=== PATIENT | female | born 1955 | race Caucasian/White ===

== ENCOUNTER → 2017-04-24 | Outpatient (CLI) | payer BC ==
--- NOTE | 2017-04-24 14:27 | DIAGNOSTIC IMAGING REPORT ---
R KNEE 3 VIEWS CLINICAL HISTORY: BILATERAL KNEE PAIN pain COMPARISON: None. DISCUSSION: Considerable degenerative narrowing of the medial joint compartments of both knees. Moderate degenerative changes of patellofemoral joint compartments bilaterally. Lateral joint compartments are generally well preserved. There is no evidence for soft tissue swelling. IMPRESSION: Considerable degenerative changes in medial joint compartments bilaterally. Moderate degenerative change patellofemoral joint. The above report was generated using voice recognition software. It may contain grammatical, syntax or spelling errors. Electronically signed by: Jaxon Irving M.D. 04/24/2017 2:26 PM Dictated Date/Time: 04/24/2017 2:25 PM
== END | disposition home or self-care (01) ==
LOC: C.RDSM 18:57
PROVIDERS: ATTEND Physician Assistant
DX: R52 Pain, unspecified (principal)

== ENCOUNTER 2023-10-11 06:14 | Observation (INO) ==
--- NOTE | 2023-09-01 09:01 | PAT Medication Instructions ---
Medication Instructions Date of Service September 01, 2023 Home Medications Medication Instructions Recorded albuterol sulfate 90 mcg/actuation 2 inh inhalation Q4H PRN shortness 01/04/20 aerosol inhaler of breath or wheezing #8.5 grams albuterol sulfate 90 mcg/actuation aerosol inhaler 2 inh inhalation Q4H PRN shortness of breath or wheezing simvastatin 20 mg tablet 20 mg PO HS acetaminophen 500 mg tablet 500 mg PO BID PRN Pain diphenhydramine HCl 25 mg tablet (Benadryl Allergy) 25 mg PO HS PRN Sleep famotidine 40 mg tablet 40 mg PO DAILY PRN Indigestion pantoprazole 40 mg tablet,delayed release 40 mg PO QAM PRN Heartburn prucalopride 2 mg tablet (Motegrity) 2 mg PO QAM DO NOT take the morning of surgery prucalopride 2 mg tablet (Motegrity) 2 mg PO QAM Take morning of surgery With a small sip of water, OTHERWISE NOTHING TO EAT OR DRINK AFTER MIDNIGHT: albuterol sulfate 90 mcg/actuation aerosol inhaler 2 inh inhalation Q4H PRN shortness of breath or wheezing (use if needed; please bring rescue inhaler with you to hospital day of surgery if possible) acetaminophen 500 mg tablet 500 mg PO BID PRN Pain (if needed) famotidine 40 mg tablet 40 mg PO DAILY PRN Indigestion (if needed) pantoprazole 40 mg tablet,delayed release 40 mg PO QAM PRN Heartburn (if needed) Take evening before surgery albuterol sulfate 90 mcg/actuation aerosol inhaler 2 inh inhalation Q4H PRN shortness of breath or wheezing (if needed) simvastatin 20 mg tablet 20 mg PO HS acetaminophen 500 mg tablet 500 mg PO BID PRN Pain (if needed) diphenhydramine HCl 25 mg tablet (Benadryl Allergy) 25 mg PO HS PRN Sleep (if needed) famotidine 40 mg tablet 40 mg PO DAILY PRN Indigestion (if needed) Other Notes If you have any questions please call us at [phone] or [phone] or [phone] or [phone]
--- NOTE | 2023-09-08 09:39 | Anesthesiology Consultation ---
Date of Service September 08, 2023 Assessment & Plan (1) Encounter for pre-operative examination: - Infectious disease screening: Per assessment on 09/08/23: No known recent infectious disease contacts or current infectious disease symptoms. - Outpatient joint assessment: Pt currently scheduled for inpatient pathway. If surgeon requests review for outpatient joint pathway, patient is not recommended candidate for outpatient joint program from anesthesia standpoint based on available information. - S/P Left TKA (10/18/17): SAB x1 attempt + regional at [facility] - Cardiology visit (06/07/23): "Chest pain/SOB: Which has resolved.. 2021 workup shows an essentially normal echocardiogram and completely normal stress test.. If she needs surgery can proceed as a low cardiac risk" - Cardiology note (09/11/23): "Low cardiac risk" - Vascular visit (06/14/23): "Her aortoiliac ultrasound performed prior to today's appointment demonstrates a widely patent aorta and iliac arteries, with an Infrarenal abdominal aortic aneurysm measuring 4.3 x 4.3 cm. This previously measured 4.4 cm 6 months ago.. Unchanged in comparison to her imaging performed 6 months ago. Due to the stability of this aneurysm, we will have her return in 6 more months for reevaluation.. From a vascular standpoint, there are no contraindications to her proceeding with her right knee arthroplasty in October." Chart Review Chart Review: Acceptable Risk for Surgery and Patient seen in Pre Admission Testing Teaching & Discussion Pre-Anesthesia Teaching/Discussion Notes: Instructed NPO after midnight before surgery,except medications with 15 cc of water. Medication instructions provided according to the PAT guidelines. History Surgery Operation Date: 10/11/23 07:00 Proposed Procedures p Right Total Knee Arthroplasty - Oli Reddy MD Height/Weight Height: 5 ft 3 in Weight: 56.9 kg Allergies Allergy/AdvReac Type Severity Reaction Status Date / Time temazepam [From Restoril] Allergy Intermediate Mouth Verified 09/06/23 15:01 blisters Medications Home Medications Medication Instructions Recorded Confirmed Last Taken albuterol sulfate 90 mcg/actuation 2 inh inhalation Q4H PRN shortness 01/04/20 09/01/23 Unknown aerosol inhaler of breath or wheezing #8.5 grams simvastatin 20 mg tablet 20 mg PO HS 12/14/22 09/01/23 Unknown acetaminophen 500 mg tablet 500 mg PO BID PRN Pain 09/01/23 09/01/23 Unknown diphenhydramine HCl 25 mg tablet 25 mg PO HS PRN Sleep 09/01/23 09/01/23 Unknown (Benadryl Allergy) famotidine 40 mg tablet 40 mg PO DAILY PRN Indigestion 09/01/23 09/01/23 Unknown pantoprazole 40 mg tablet,delayed 40 mg PO QAM PRN Heartburn 09/01/23 09/01/23 Unknown release prucalopride 2 mg tablet 2 mg PO QAM 09/01/23 09/01/23 Unknown (Motegrity) Past Medical History Medical History AAA (abdominal aortic aneurysm) 2023 imagin.3-4.4cm Follows with vascular/Dr. Cat Degenerative disc disease cervical spine History of COVID-19 (12/2019) Covid PNA > symptoms resolved History of CVA (cerebrovascular accident) Incidental finding remote imaging 1990s History of hypotension "periods of lower blood pressure readings" Hx of colonic polyps Hyperlipidemia Indigestion + nausea (denies heartburn) Famotidine and Pantoprazole PRN Insomnia Osteoarthritis Paroxysmal SVT (supraventricular tachycardia) s/p ablation (~2005) No recent issues Restless leg syndrome Sleep apnea No device (unable to tolerate CPAP) Exercise / Class Metabolic Activity II 4-5 Yardwork/Stairs/Walk up hill (one FS: No CP, no SOB) Past Family History Family History Other Myocardial infarction No family history of adverse response to anesthesia Past Surgical History Surgical History H/O cardiac radiofrequency ablation ~2005 r/t SVT History of arthroplasty of left knee History of bladder suspension procedure total of 6 procedures History of cholecystectomy History of colonoscopy History of esophagogastroduodenoscopy (EGD) Nausea and vomiting after administration of anesthetic agent S/P epidural steroid injection cervical epidurals Status post placement of implantable loop recorder Implanted ~2011 "Batteries are " but device remains in left upper chest Status post total left knee replacement Left TKA (10/18/17): SAB x1 attempt + regional at [facility] Past Anesthesia History No Hx of Anesthesia Complications and No Family Hx of Anesthesia Complications History of PONV No Hx of PONV and No Hx of Motion Sickness Social History Smoking Status: Current every day smoker tobacco type: cigarettes Smoking cigarettes per day: 1 PPD x50 years Do You Dip or Chew Tobacco: No Hx Alcohol Use: No Hx Substance Use: No substance use type: does not use Review of Systems Patient denies chest pain, shortness of breath, dyspnea on exertion, fever, chills, cough, wheezing, palpitations. Physical Exam Vital Signs BP 111/69 P 72 TEMP 98.1 SP02 97%RA RESP 16 Physical Full cervical extension range of motion. Full TMJ range of motion. TMD 3 finger breaths Mallampati Score I Dentition: lower front missing Lungs: clear throughout to auscultation Cardiac: regular rate and rhythm, faint heart sounds Spine: normal Carotid arteries: negative bruit Extremities: no LE edema Lab Results Anesthesia Preop Results Results Anesthesia Widget: WBC 7.60 K/ul (4.8-10.8) 09/08/23 Hgb 15.0 g/dl (12.0-16.0) 09/08/23 Hct 45.9 % (37.0-47.0) 09/08/23 Plt 243 K/uL (130-400) 09/08/23 Na 139 mmol/L (136-145) 09/08/23 K 4.3 mmol/L (3.5-5.1) 09/08/23 Cl 105 mmol/L (98-107) 09/08/23 CO2 29 mmol/L (21-32) 09/08/23 BUN 8 mg/dl (6-23) 09/08/23 Creat 0.67 mg/dl (0.6-1.2) 09/08/23 Glucose Level 109 mg/dl (70-99(Fasting)) H 09/08/23 PT 10.2 Seconds (9.0-12.0) 09/08/23 PTT 27 Seconds (21-31) 09/08/23 INR 0.9 (0.9-1.1) 09/08/23 Urine Color Yellow 09/08/23 Urine Appearance Cloudy (Clear) A 09/08/23 Urine pH 8.0 (4.5-7.5) H 09/08/23 Urine Specific [place] 1.014 (1.000-1.030) 09/08/23 Urine Protein Trace (Negative) H 09/08/23 Urine Glucose (UA) Negative (Negative) 09/08/23 Urine Ketones Trace (Negative) H 09/08/23 Urine Blood Negative (Negative) 09/08/23 Urine Nitrite Negative (Negative) 09/08/23 Urine Bilirubin Negative (Negative) 09/08/23 Urine Urobilinogen Negative (Negative) 09/08/23 Urine Leukocyte Esterase 1+ (Negative) H 09/08/23 Urine WBC (Auto) 11-20 /hpf (0-5) H 09/08/23 Urine RBC (Auto) 11-20 /hpf (0-2) H 09/08/23 Urine Hyaline Casts (Auto) 0-2 /lpf (0-2) 09/08/23 Urine Epithelial Cells (Auto) 0-2 /hpf (0-2) 09/08/23 Urine Bacteria (Auto) 4+ (None Seen) H 09/08/23 Blood Type A Positive 09/08/23 Antibody Screen NEGATIVE 09/08/23 Testing Laboratory Results Surgeon's office made aware of abnormal preop UA* Urine culture (09/08/23): alpha strep not enterococcus > no sensitivities to follow per report* Electrocardiogram Date: 06/07/23 Possible septal infarct. Low voltage in precordial leads.74 bpm. Minimal mid and leftprecordial repolarization disturbance, probably a specific change. Chest X-Ray Date: 09/08/23 FINDINGS: Cholecystectomy. Electronic device projects over the left upper chest. Cardiac silhouette is normal. No pneumothorax, lobar airspace consolidation, pleural effusion or pulmonary edema. IMPRESSION: No acute process. Echocardiogram Date: 09/30/21 EF 55-60%. Wall motion is normal. No significant valvular disease. PASP 21- 26mmhg. Normal LV diastolic function. Stress Test Date: 05/31/21 Type: nuclear Based upon EKG criteria, negative test. Based upon the nuclear findings, there is no evidence of myocardial ischemia or infarction. LVEF 72%.
--- NOTE | 2023-10-11 05:24 | History & Physical Bridge Note ---
Date of Service October 11, 2023 History & Physical Bridge Note I have examined the patient, reviewed the History & Physical and in the interval since the performance of the History & Physical I have noted the following changes of clinical significance: consent and site verified.no changes noted
[~2023-10-11 06:14] MED LIST: ROPIVACAINE 0.5% HCL/PF 246 MG, Ketorolac (*for OR use only*) 30 MG, EPINEPHrine 30MG/3... INFIL SCH
[2023-10-11] MEDS ORDERED: EPINEPHrine INJ 1 MG/ML AMP ONE (06:31)
[2023-10-11] MEDS ORDERED: BUPIVACAINE 0.5 % 5 MG/1 ML PF 10ML VIAL ONE (06:32)
[2023-10-11] MEDS ORDERED: ROPIVACAINE 0.5% 5 MG/ML 30 ML VIAL ONE (06:32)
[2023-10-11] MEDS: LR 500ML BOLUS, THEN 15ML/HR IV SCH (06:50)
[2023-10-11] MEDS: LR 60ML/HR IV SCH (07:01)
--- OUTSIDE RECORDS SUMMARY | 2023-10-11 07:24 | External Medical Summary | Continuity of Care Document ---
Author Name Unknown Organization [address] [employer] [place] [id number] Address [address] [place] [phone] Care Team Providers Care Administrative Nursing Supervisor Name Role Phone Balbir Alarcon Primary Care Physician [phone] Encounter [facility] [id number] Date(s): 09/25/23 - 09/25/23 [facility] [address] [facility] [place] [address] [facility] [address] [place] [id number] Encounter Diagnosis Bilateral primary osteoarthritis of knee(Discharge Diagnosis) - 09/25/23 Right knee DJD(Discharge Diagnosis) - 09/25/23 Discharge Disposition: Home or Self Care Attending Physician: MD Reddy Wayne J Referring Physician: MD Reddy Wayne J Allergies, Adverse Reactions, Alerts No Known Allergies Medications Aleve 220 mg oral tablet Start: 10/19/22 10:03:00 AM EDT, 1 tab, PO, at night Start Date: 10/19/22 Status: Ordered Benadryl 25 mg oral capsule Start: 06/14/23 10:20:00 AM EDT, 1 cap, PO, qhs, PRN: as needed for insomnia Start Date: 06/14/23 Status: Ordered Motegrity 1 mg oral tablet TAKE ONE TABLET BY MOUTH EVERY DAY Start Date: 06/14/23 Status: Ordered simvastatin 20 mg oral tablet Start: 12/04/13 9:57:00 AM EDT, 1 tab, PO, qhs Start Date: 12/04/13 Status: Ordered Mental Status 09/25/23 Barriers to Learning one year None evide nt Mandatory Health Literacy Documentation Yes Health Literacy Communication Barriers N ever Primary Language Lithuanian Problem List Condition Confirmation Course Effective Dates Status Health Status Informant AAA (abdominal aortic aneurysm) Confirmed Active Facet arthropathy, cervical Confirmed Active Cervical radiculopathy Confirmed Active Cervical spondylosis Confirmed Active Diverticulitis Confirmed Active Status post total left knee replacement Confirmed Active Hypercholesteremia Confirmed Active Myofascial pain Confirmed Active Cervical spine pain Confirmed Active DJD (degenerative joint disease) of knee Confirmed Active Right knee DJD Confirmed Active Protruded cervical disc Confirmed Active Bulging lumbar disc Confirmed Active Psoriatic arthritis Confirmed Active Psoriatic arthritis Confirmed Active Recurrent urinary tract infection Confirmed Active Restless leg syndrome Confirmed Active Urinary retention Confirmed Active Thoracic back pain Confirmed Active Tobacco user Confirmed Active Weight disorder Confirmed Active Diagnosis Diagnosis Type Effective Dates Health Status Clinical Service Informant Bilateral primary osteoarthritis of knee Discharge Diagnosis 09/25/23 Right knee DJD Discharge Diagnosis 09/25/23 Non-Specified Procedures Procedure Date Related Diagnosis Body Site Status Mesh 2013 Completed Implantation of insertable loop recorder 2010 Completed Catheter ablation for cardiac arrhythmia 2009 Completed Abdominal hysterectomy 1994 Co mpleted Procedure 2 Completed Repair of cystocele 3 Com pleted 1excision of mesh from cystocele repair due to erosion 2Division of sling 3X3 Vital Signs Most recent to oldest [Reference Range]: 1 Height 161 cm (09/25/23 10:05 AM) Patient Weight 56.8 kg (09/25/23 10:05 AM) Body Mass Index 21.91 kg/m2 (09/25/23 10:05 AM) Temperature [36.5-37.9 DegC] 36.2 DegC *LOW* (09/25/23 10:05 AM) Heart Rate 77 bpm (09/25/23 10:05 AM) Blood Pressure 124/70mmHg (09/25/23 10:05 AM) Social History Social History Type Response Smoking Status Never smoked cigaret julito Sex Female Sex Representation Female (finding) Pre-OP H & P * GERSON Tracy Jennifer R: PERFORM Event Display: Pre-OP H & P Authored Date: [id number] Name:FEROZ MEREDITH Patient Number:[id number] :1955 Date of Service:09/25/2023 Chief Complaint R knee pre op History of Present Illness Lex yearYsabel presents today for A preoperative history andphysical. She is scheduled to have a right total knee arthroplasty with Dr. Reddy on October 11, 2023. She has been having many years worth of right knee pain. She has tried cortisone injections as well as viscosupplementation. She states that neither have provided any long-lastingrelief. She has tried tisp-[id number] anti-inflammatories as well. She states that she needs to take these on a daily basis. She has pain at rest and pain at night. She has pain with all normal daily activities. The pain does interrupt her ability to do things that she likes to do includi ng her activities of daily living. She gets stiffness. She has tried topical Voltaren. She has done physical therapy in the past. She had a successful left total knee arthroplasty in [address] Reddy. Due to her failure of conservative treatment and persistent worsening symptoms she wishes to proceed with an elective right total knee arthroplasty. Review of Systems Denies any recent cough, cold, fevers, chills or flulike symptoms.She denies any lightheadedness,dizziness, syncopal episodes, headaches, migraines or seizures. Denies any bleeding or clotting disorders or history of DVT or pulmonary embolism. Denies any recent hospitalizations. Denies any history of metal sensitivity, latex allergy or MRSA. Denies any shortness of breath or chest pain. Deniesabdominal pain, heartburn, indigestion, nausea, vomiting, diarrhea or constipation. She was diagnosed with a urinary tract infection earlier this month with her preadmission testing. She was treated with amoxicillin and currently has no symptoms. She denies any frequency, burning or foul-smelling urine today. Denies any hearing or vision changes. Denies any dental problems. Physical Exam Vitals & Measurements T:36.2C HR:77(Monitored) BP:124/70 SpO2:98% HT:161cm WT:56.8kg WT:56.800kg(Dosing) BMI:21.91 Vitals:Last Updated 09/25/23 10:23 Date Temp BP Location Pulse RR SpO2 Pain 09/25/23 9 09/25/23 36.2 124/70 77 98 9 06/14/23 130/68 Right Arm 76 97 0 Height and Weight:Last Updated 09/25/23 10:05 Date BMI Wt(kg) Wt(lb) Method Ht(cm) (ft-in) Method 09/25/23 21.91 56.8 125 Standing Scale 161 5-3 Standing 11/16/22 60 132 Standing Scale 04/18/22 24.09 64 141 Standing Scale 163 5-4 General:Well-dressed, well-nourished. Normal mood and affect. Alert and oriented x3. HEENT:Head: Atraumatic, normocephalic. Eyes: Extraocular movements intact, pupils equal round and reactive to light, sclera normal. Ears: Ears grossly normal, TMs are clear normal light reflex.Nose: Nares are patent bilaterally. Throat: Oropharynx clear mucous membranes moist, fair dentition,gums nontender or erythematous. Uvula midline. Neck:Supple, no lymphadenopathy, nontender palpation, full range of motion. Cardiac:Regular rate and rhythm, normal S1, S2. No murmurs, rubs or gallops appreciated. Lungs:Clear to auscultation bilaterally. No adventitious sounds. No accessory muscle use. Abdomen:Soft, nontender, nondistended, normal bowel sounds heard in all 4 quadrants. Extremities: Focus on the right lower extremity: Femoral and sciatic nerve function intact. Left knee ROM: +2 to 115 Right knee ROM: 0 to 110 Varus alignment Knee thickening medially Diagnostic Results I reviewed x-rays from February 2023 which shows significant medial joint space narrowing, subchondral sclerosis and periarticular osteophytes. Incidental finding of a well-fixed, well-aligned left knee replacement. Assessment/Plan 1.Bilateral primary osteoarthritis of knee Patient is scheduled for an elective right total knee arthroplasty with Dr. Reddy on October 11, 2023. Risks and complications of the procedure were explained to the patient and include but are not limited to infection, pain, bleeding, scarring, nerve and blood vessel damage, wound problems, weakness, stiffness, incomplete relief of symptoms, hardware failure, loosening, wear, fracture, tendon or ligament injury, blood clots, embolisms, heart attack, stroke or . All questions were answered and informed consent was obtained. She did have preadmission testing in which she obtained a preoperative CBC, BMP, PT, PTT and type and screen. All of which are normal. She did have a urinalysis with culture which showed a urinary tract infection which has been treated. She has been cleared from a cardiac standpoint. Her if she has an appoint with her family physician for clearance tomorrow on September 26, 2023. She had an EKG and chest x-ray which were also acceptable pr eoperatively. Postoperative course was discussed. She does have a walker and a cane to use after surgery. She would like home health arranged preoperatively. She was instructed on the usage of the CHG wipes. She was instructed when to be n.p.o. after midnight prior to her surgery. She knows to call the day before to get her surgery time to report. She will follow-up as scheduled approximately 2 weeks after her procedure. She will start outpatient physical therapy when appropriate at [facility] [place]. We will use Percocet for postoperative pain control as well as Eliquis 2.5 mg p.o. twice daily for DVT prophylaxis. Both of these prescriptions will be sent to her pharmacy at the time of discharge from the hospital. All questions were answered. She knows to call with any further problems, questions or concerns. This chart was completed utilizing [employer] voice recognition software. Grammatical errors, random word insertions, pronoun errors, and in complete sentences are an occasional consequence of the system. Any questions or concerns about the content, text, or information contained within the body of this dictation should be addressed directly to the provider for clarification. Problem List/Past Medical History Ongoing AAA (abdominal aortic aneurysm) Bulging lumbar disc Cervical radiculopathy Cervical spine pain Cervical spondylosis Diverticulitis DJD (degenerative joint disease) of knee Facet arthropathy, cervical Hypercholesteremia Myofascial pain Protruded cervical disc Psoriatic arthritis Psoriatic arthritis Recurrent urinary tract infection Restless leg syndrome Right knee DJD Status post total left knee replacement Thoracic back pain Tobacco user Urinary retention Weight disorder Sleep apnea - no use of CPAP - was recalled and she never got a replacement Questions history of stroke - may years ago? Has a loop recorder- batteries are and she elected not have surgery to have them replaced orremoved. Procedure/Surgical History Mesh| Service Date: 2013Implantation of insertable loop recorder| Service Date: 2010Catheter ablation for cardiac arrhythmia| Service Date: bdominal hysterectomy| Service Date: 1994Repair of cystocele Medications Home diphenhydrAMINE(Benadryl 25 mg oral capsule), 25 mg= 1 cap, PO, qhs, PRN naproxen(Aleve 220 mg oral tablet), 220 mg= 1 tab, PO prucalopride(Motegrity 1 mg oral tablet) simvastatin(simvastatin 20 mg oral tablet), 20 mg= 1 tab, PO, qhs Allergies NKA Social History Patient smokes cigarettes. Approximately half a pack of cigarettes per day for the last 50 years. Denies any alcohol use. Denies any recreational drug use. She lives alone with her spouse. She has a walker and cane to use after surgery. She sees a dentist regularly for cleanings. Family History Breast cancer: Sister. Cancer of colon: Sister. Heart attack: Mother, Father and Brother. Hypertension: Father, Sister and Brother. Osteoporosis: Sister. Stroke: Mother and MGM. Thyroid disease: Brother. Type I diabetes mellitus: Sister and Brother. Type II diabetes mellitus: Father, Sister and Brother. Electronic Signature on File Electronically Reviewed/Signed by: Abida Tracy PA-C Author Signature Dt/Tm:09/25/2023 02:54PM Division of Sports Medicine Electronically Reviewed/Signed by: Oli Reddy MD Cosigner Signature Dt/Tm: 09/25/2023 02:59 PM Gear Keeper for Clinical Affairs, [facility] Professor in Orthopaedics Capacitor Repairer, [facility] Sports [facility] Ortho Outpt Note * Teresa Camacho: PERFORM, MODIFY Event Display: Ortho Outpt Note Authored Date: [id number] Name:FEROZ MEREDITH Patient Number:[id number] :1955 Date of Service:09/25/2023 CHIEF COMPLAINT: Surgery consent right TKA HPI: [id number] Darryn presents today forright TKAsurgery consent. She is currently scheduled for surgery on 10/11/2023. She has tried medical management with viscosupplementation with her most recent series completed in October 2022 without any improvement of herpain.She has a history of left TKA which she has done well with and is very pleased with her results. PHYSICAL EXAM: Focus on the right lower extremity: Femoral and sciatic nerve function intact. Left knee ROM: +2 to 115 Right knee ROM: 0 to 110 Varus alignment Knee thickening medially DIAGNOSTIC REVIEW: I reviewed x-rays from February 2023 which shows significant medial joint space narrowing, subchondral sclerosis and periarticular osteophytes. Incidental finding of a well-fixed, well-aligned left knee replacement. IMPRESSION: 1) Right knee OA 2) s/p left TKA PLAN: Risks, benefits, procedure, and rehabilitation for right total knee arthroplasty were discussed. Surgical consent obtained Follow-up as scheduled for surgery and post-operative appointments ATTESTATION: I,Teresa Camacho, scribing for and in the presence of, Oli Reddy, on this date,09/25/2023 10:12:57. Electronic Signature on File Electronically Reviewed/Signed by: Teresa Camacho Author Signature Dt/Tm:09/25/2023 10:28 AM Electronically Reviewed/Signed by: Oli Reddy MD Cosigner Signature Dt/Tm: 09/25/2023 12:08 PM Gear Keeper for Clinical Affairs, [facility] Professor in Orthopaedics Capacitor Repairer, [facility] Sports Medicine Patient Care team information Care Team Personnel Name: GERSON Sarmiento Lynn Position: Physician Insurance Agents Supervisor Exempt - Vasc Surg Member Role: Lifetime Relationship Address: [address] [address] [place] [address] [place] Name: WILIAM Salinas Anna L Position: Nurse Pract - Female Pelvic Med Member Role: Lifetime Relationship Address: [address] [place] [address] [place] Name: DO Alarcon Gregor S Position: Referring Member Role: Primary Care Provider Address: [address] [place] [address] [place] Care Team Related Persons Name: PANKAJ MEREDITH"
[2023-10-11] MEDS ORDERED: MIDAZOLAM HCL 1 MG/ML 2ML VIAL ONE (07:34)
[2023-10-11] MEDS: TRANEXAMIC ACID 1,000 MG **IV Pre-op IV SCH (08:46)
[2023-10-11] MEDS: ceFAZolin 2000MG 2,000 MG/15 ML SYR IV SCH ×2 (09:07→18:01)
[2023-10-11] MEDS: ROPIVACAINE 0.5% HCL/PF 246 MG, Ketorolac (*for OR use only*) 30 MG, EPINEPHrine 30MG/3... INFIL SCH (09:33)
[2023-10-11] MEDS: ORTHO JOINT ANESTHETIC ONE (09:34)
[2023-10-11] MEDS ORDERED: PHENYLEPHRINE 100MCG/ML 10ML SYR IV ONE (10:03)
[2023-10-11] MEDS ORDERED: PROPOFOL IV EMULSION 10 MG/ML 20 ML VIAL IV ONE (10:03)
[2023-10-11] MEDS: TRANEXAMIC ACID 1,000 MG **IV Intra-op IV SCH (10:08)
--- NOTE | 2023-10-11 10:35 | Post Operative Brief Note ---
Immediate Post Op Note Date of Surgery October 11, 2023 Pre & Post Diagnosis Operation Date: 10/11/23 08:50 <No data on this case meets the specified criteria> Osteoarthritis right knee pre and postop diagnosis same I identified the patient and participated in the time-out.: Yes Procedure Operation Date: 10/11/23 08:50 <No data on this case meets the specified criteria> Cemented right total knee replacement Surgeon Oli Reddy MD Novelty Candy Maker Parth/Dave Estimated Blood Loss 30 Findings Consistent with Post-Op Diagnosis Severe medial disease moderate patellofemoral disease Fluids See anesthesia report Complications None
--- NOTE | 2023-10-11 10:39 | Operative Report ---
Post Operative Report Pre & Post Diagnosis Operation Date: 10/11/23 08:50 <No data on this case meets the specified criteria> Osteoarthritis right knee pre and postop diagnosis same I identified the patient and participated in the time-out.: Yes Procedure Operation Date: 10/11/23 08:50 <No data on this case meets the specified criteria> Cemented right total knee replacement Surgeon Oli Reddy MD Nuclear Monitoring Technician Tae/Dave Estimated Blood Loss 30 Findings Consistent with Post-Op Diagnosis Severe medial and patellofemoral disease Fluids See anesthesia report Specimens Bone pathology Drains None Complications None Indications Failed conservative management severe pain advanced x-ray findings Description of Procedure After the patient was appropriate notified site verified consent verified antibiotics confirmed as being given the right lower extremity was prepped and draped in his routine fashion. Tourniquet was inflated to 275 mmHg after e xsanguination limb with a rubber band for total of 50 minutes. Midline exposure was utilized. Parapatellar arthrotomy performed. Synovectomy completed osteophytes resected. Distal femur entered. Cruciates resected tibia subluxated menisci resected. Distal femur resected 9 mm proximal tibia 4 mm the extension gap was excellent. Femur was sized to a size size 4 and appropriate cutting block applied and the anterior posterior condylar and chamfer cuts made. The flexion gap and extension gaps were excellent. Posterior capsule was injected. The box cut was then made a size 4 fit well. The tibia was broached and reamed to a size 3 and a 7 mm spacer gave excellent midrange and full extension and full flexion range of motion and stability. Patella was then resected leaving about 14 mm and a 35 button was placed. Ortho mix was then injected about the knee trial elements removed wound irrigated with Pulsavac and soaked in Betadine for 3 minutes and then irrigated again and the permanent cemented into position tibia femur patella in that order. At 12 minutes the tourniquet was deflated minor bleeding points controlled with electrocautery minimal cement removal was required. The wound was irrigated with Pulsavac and Betadine and the permanent liner seated the knee reduced and closed with 2-0 Vicryl 2-0 plain and standstill clips. Summary of implants size 4 right femur posterior cruciate substituting size 3 rotating platform tray size 35 patella size 4 posterior cruciate substituting x 7 mm rotating platform insert this is the [employer] system. EBL was 30 cc crystalloid per anesthesia DVT PE prophylaxis will start tomorrow. Pathology pending on bone. I attest to the content of the Intraoperative Record and any orders documented therein. Any exceptions are noted below.
--- NOTE | 2023-10-11 10:43 | Discharge Summary ---
Date of Service October 12, 2023 Admission HPI Per Admitting Provider Advanced knee pain right Principal Diagnosis Osteoarthritis right knee varus flexion deformity Discharge Data Allergies Allergy/AdvReac Type Severity Reaction Status Date / Time temazepam [From Restoril] Allergy Intermediate Mouth Verified 10/11/23 06:50 blisters Vaccinations None Consultations None Procedures Performed Operation Date: 10/11/23 08:50 <No data on this case meets the specified criteria> Cemented right total knee replacement Ordered Studies 10/11/23 05:00 US - OR guided needle placemen Routine Hospital Course (1) Status post right knee replacement: Continue care plan for total knee replacement Total Time Total Time Spent Total Time Spent (In Minutes): 5 Discharge Plan Discharge Items Reason For Visit: Right Knee Degenerative Joint Disease Discharge Diagnosis: Right knee s/p total knee replacement Condition on Discharge: Good Activity: Per Instructions section Lifting: No more than 5 pounds Bathing: Keep incision dry Sexual Activity: Wait until after follow-up appointment Exercise/Sports: Wait until after follow-up appointment Driving/Machine Use: No driving until cleared by Dr. Reddy Weightbearing: Full weightbearing Non-emergency contact: Surgeon Call non-emergency contact if: you have any medication questions, your pain is not controlled, your temperature is above 101.5, your wound has increased redness, your wound has increased drainage and your wound pain has increased Follow-up/Referrals: Balbir Alarcon DO [Primary Care Provider] - Diet: Regular Addtl Attending Provider Instructions: DIET: * Resume previous diet. MEDICATIONS: * Please take your prescriptions as instructed at your pre-op appointment and/or see medication discharge instructions listed above. * If concerns develop, call your physician's office at . SPECIAL CARE INSTRUCTIONS: * Ice/Elevate as instructed. * Keep dressing clean, dry, intact. * Your surgical extremity may be discolored due to prepping agents used on the skin. A bluish-green tint is a normal variant and should not cause alarm. Call your doctor at [phone] if: * Temperature above 101 degrees * Pain not relieved by pain medicine ordered * There is increased drainage or redness from any incision * You have any unanswered questions, problems or concerns. FOLLOW UP VISIT: * If not already scheduled, please call the office at to schedule a follow-up appointment. New Medicine: * You will likely be taking one or more of these medications: 1. Percocet - Take, as directed, when you need it, every four to six hours to control your pain. 2. Iron Sulfate - Take three times each day for the month after surgery to help you replace the blood lost during surgery. 3. Coumadin - Thins your blood to lessen the chance of forming a blood clot. The dose of this is different for each person and is based on your blood tests that are done twice a week. * The most common side effects of pain medicine and iron are nausea and constipation. If nausea or constipation is too much of a problem or if you have any questions about your new medicines or doses, call [facility] at . We will try to help you manage these issues. "VERY IMPORTANT TO READ AND REVIEW" Blood Clots and Blood Thinning Medicine: * You are given Coumadin during the immediate post-operative period to lessen the risk of blood clots forming in your legs and/or lungs. Coumadin is usually given for six weeks after surgery. * The prescription is for 2 mg tablets. At discharge, you should understand your dose and take it all at the same time every day, preferably after dinner. * You need to get your blood checked 1 - 2 times per week for six weeks or as directed. * If your dose needs to change, we will call you. Do not take your medication on the day of the blood test until we call you. Pain: * The immediate post-operative period after knee replacement surgery is often quite painful. * You are given a prescription for pain medicine. You should take it, as directed, when you need it, especially before physical therapy and before going to bed. Pain that interferes with sleep is very common and can last several months. * You will likely need pain medicine for the first four to six weeks. It will not stop all of the pain. The pain will lessen and as you feel better, you may change to milder pain medicine such as Tylenol. * The most common side effects of pain medicine are nausea and constipation, so don't take more than you need. Physical Therapy: * You will have physical therapy two or three times each week for four to six weeks after your surgery in order to regain your knee range of motion and to retrain your knee to work properly. * It is just as important to make sure you are getting your knee perfectly straight as it is to regain your knee bend. * Taking a pain pill an hour before therapy can help you have a more productive and comfortable therapy session if needed. Home Exercise: * You were shown a series of exercises (heel props, heel slides, etc.) in the hospital. Do these exercises three to four times each day including the exercises you were shown in physical therapy. Walking: * Get up and walk several times each day. For the first four weeks, try not to stand or walk for more than one hour at a time. If you do stand or walk for more than one hour, you will not hurt anything, but your knee and leg will likely swell. * As you feel comfortable, you may change from the walker or crutches to a cane and then to independent walking. SELF CARE INSTRUCTIONS AFTER TOTAL KNEE REPLACEMENT A. You may need to continue a physical therapy program after discharge from the hospital. There are several options available to you. Your doctor will assist you in selecting the best one for you. 1. An out-patient facility 2 to 3 times a week for therapy or home therapy. 2. Continue working on all exercises taught to you in the hospital. Your goals should be to increase bending of your knee to 90 degrees and beyond and to fully straighten your knee. B. You may progress at your own pace from walking with a walker or crutches to a cane; then to no assistive devices. C. Make walking a part of your daily routine. Be up as much as comfortable with rest periods throughout the day. Rest with leg elevation is very important. Use the ice wrap frequently for the first 3-4 weeks. D. There are no restrictions on activities. You may ride in a car, shop, participate in project manager finance and all social activities. E. Wear the long elastic stockings (ZAINAB hose) 20 hours a day for six weeks after surgery. They can be removed several times a day for laundering and for a shower. F. Do not place a pillow behind your knee when resting. A pillow at your ankle is okay. VERY IMPORTANT TO READ AND REVIEW A. Take Coumadin, Aspirin or Lovenox (blood thinning medications) as directed by your doctor. If on Coumadin, have a pro-time (blood test) drawn according to your doctor's instructions. This will tell the doctor how well the Coumadin is thinning your blood. 1. YOU WILL BE GIVEN AN ORDER AT DISCHARGE FOR PT/INR (BLOOD WORK). PLEASE HAVE THIS DONE INSTRUCTED. PLEASE CALL OUR OFFICE AFTER YOUR BLOODWORK IS COMPLETE SO WE CAN TRACK YOUR RESULTS. IF YOU ARE GOING TO OUTPATIENT PHYSICAL THERAPY, YOU WILL NEED TO GO TO OUTPATIENT TESTING TO HAVE IT DRAWN. B. There are a few signs you need to watch for after you are home. Call [facility] if you notice any of the followin. Increased severe knee pain. Some pain is expected especially when you exercise. 2. Increased swelling in your leg or knee; pain or swelling of the calf muscle in either lower leg. 3. Any fluid drainage from the incision. 4. Shortness of breath or chest pain. C. Please call [facility] at if you have any concerns or questions about your operation or recovery. The doctor or his nurse will return your call promptly. D. You must take antibiotics before dental work, bladder, bowel or other surgery. Call the office to obtain a prescription at least 2 days prior to your appointment. * CALL IF INCREASED PAIN, REDNESS, DRAINAGE OR FEVER GREATER THAT 101. * Sutures should be removed 12-14 days after surgery unless you are on chronic steriods, then it will be 14-18 days after surgery. Call your doctor if: * Temperature above 101 degrees F. * Pain not relieved by pain medicine ordered. * Increased drainage or redness from incision. * Notify your doctor with any questions or concerns. Use the knee immobilizer today and tomorrow. Discontinue it entirely on Monday morning use your walker for ambulation follow up in the office in 2 weeks as scheduled for staple removal Pending Studies at Discharge: Yes (Bone pathology) Stand-Alone Forms: My [facility] Medications and DC Order Prescriptions: No Action simvastatin 20 mg tablet 20 mg PO HS albuterol sulfate 90 mcg/actuation HFA aerosol inhaler 2 inh inhalation Q4H PRN (Reason: shortness of breath or wheezing) Qty: 8.5 0RF famotidine 40 mg Tablet 40 mg PO DAILY PRN (Reason: Indigestion) Motegrity 2 mg Tablet 2 mg PO QAM pantoprazole 40 mg Tablet,Delayed Release (Dr/Ec) 40 mg PO QAM PRN (Reason: Heartburn) diphenhydramine HCl [Benadryl Allergy] 25 mg Tablet 25 mg PO HS PRN (Reason: Sleep) acetaminophen 500 mg Tablet 500 mg PO BID PRN (Reason: Pain) Admission Data Admit Date/Time: 10/11/23 11:00 Attending Provider: Oli Reddy Admit Provider: Oli Reddy Primary Care Provider: Balbir Alarcon
--- NOTE | 2023-10-11 10:44 | Orthopedic Progress Note ---
Date of Service October 11, 2023 Orthopedic Progress Note Doing well status post a right total knee replacement denies chest pain shortness of breath fever chills nausea vomiting headache. Vital signs are stable she is afebrile. Neurovascular check femoral sciatic nerve lifestyle limited by spinal. X-rays p ending. Will at this point I am doing well continue with care plan pathway. Antibiotic prophylaxis initiated. Will wait on the anticoagulation until tomorrow. Family contacted.
--- NOTE | 2023-10-11 10:49 | Operative Report ---
Post Operative Report Pre & Post Diagnosis Operation Date: 10/11/23 08:50 Pre-Op Diagnosis: Right knee degenerative joint disease. Post-Op Diagnosis: Right knee degenerative joint disease. I identified the patient and participated in the time-out.: Yes Procedure Operation Date: 10/11/23 08:50 Actual Procedures p Right Total Knee Arthroplasty(Right) - Oli Reddy MD Surgeon Oli Reddy MD Analytics Lead Tae/Dave Estimated Blood Loss 30 Findings Consistent with Post-Op Diagnosis Specimens Bone pathology Description of Procedure Patient was brought to the operative suite, the right lower extremity was prepped and draped in usual sterile fashion. A surgical timeout was performed. Patient underwent a right total knee arthroplasty, please see Dr. Reddy's operative report for full details. I was present and assisted with positioning, soft tissue retraction, surgical approach, bony preparations, hardware placement, wound closure, postoperative dressing placement. Patient was taken to the recovery room in stable condition. I attest to the content of the Intraoperative Record and any orders documented therein. Any exceptions are noted below.
--- NOTE | 2023-10-11 11:02 | Operative Report ---
Post Operative Report Pre & Post Diagnosis Operation Date: 10/11/23 08:50 Pre-Op Diagnosis: Right knee degenerative joint disease. Post-Op Diagnosis: Right knee degenerative joint disease. I identified the patient and participated in the time-out.: Yes Procedure Operation Date: 10/11/23 08:50 Actual Procedures p Right Total Knee Arthroplasty(Right) - Oli Reddy MD Surgeon RELL Reddy MD Promotions Intern Tae/Dave NIETO Estimated Blood Loss 30 Findings Consistent with Post-Op Diagnosis see operative report Specimens see operative report Drains none Complications none Disposition Accompanied Patient To Recovery: Yes Indications This 68 year old female presented to the office with complaints of persisting right knee pain. She had tried conservative care measures without improvement. She elected to proceed with surgical intervention after being educated about potential risks and outcomes. Preoperative imaging was obtained. Description of Procedure The patient was administered a spinal anesthetic and then taken to the operating room where she was given sedation. She was prepped and draped in the usual sterile fashion. Please see Dr. Reddy's operative report for specifics of the procedure. I was present for the entire case from initial patient positioning through final wound closure. Assistance was provided in tissue retraction, hemostasis, trial implant placement, final implant placement, and final wound closure. The patient was taken to the recovery room in satisfactory condition. I attest to the content of the Intraoperative Record and any orders documented therein. Any exceptions are noted below.
--- NOTE | 2023-10-11 11:53 | XRay Report ---
TWO VIEWS RIGHT KNEE CLINICAL HISTORY: Postoperative examination. FINDINGS: AP and crosstable lateral portable views of the right knee are obtained. A right knee arthr oplasty is in near anatomic alignment. There has been undersurface remodeling of the patella. No acut e fracture is seen. There are expected postoperative changes around the knee including skin clips, so ft tissue edema, and subcutaneous gas. IMPRESSION: Expected postoperative changes status post right knee arthroplasty. No acute fracture is seen. ACT 112: Negative or not required by law. Electronically signed by: Terry Schwartz M.D. 10/11/2023 11:52 AM
--- NOTE | 2023-10-11 11:58 | Anesthesiology Progress Note ---
Date of Service October 11, 2023 Anesthesia Post Procedure Vital Signs Vital Signs: Temp Pulse Pulse Resp BP Pulse Ox O2 Del Method 10/11/23 11:40 67 12 108/56 L 100 Nasal Cannula 10/11/23 11:25 36.4 C L 73 18 121/59 L 99 Nasal Cannula 10/11/23 11:15 69 17 121/60 100 Nasal Cannula 10/11/23 11:05 71 12 94/54 L 100 Nasal Cannula 10/11/23 10:55 79 22 103/61 100 Oxymask 10/11/23 10:46 36.3 C L 87 16 116/57 L 98 Oxymask 10/11/23 06:40 36.5 C 80 20 126/60 100 Room Air O2 Flow Rate 10/11/23 11:40 2 10/11/23 11:25 2 10/11/23 11:15 2 10/11/23 11:05 2 10/11/23 10:55 4 10/11/23 10:46 6 10/11/23 06:40 Transfer of Care Handoff Completed per policy Notes Mental Status: alert / awake / arousable Patient Amnestic to Procedure: Yes Nausea / Vomiting: adequately controlled Pain: adequately controlled Airway Patency, RR, SpO2: stable & adequate BP & HR: stable & adequate Hydration State: stable & adequate Neuraxial Anesthesia: was administered and sensory block is resolving Anesthetic Complications: no major complications apparent
[2023-10-11] MEDS ORDERED: METOCLOPRAMIDE HCL INJ 5 MG/ML 2 ML VIAL IV PRN (12:34)
[2023-10-11] MEDS ORDERED: FAMOTIDINE 40 MG TABLET PO PRN (12:34)
[2023-10-11] MEDS ORDERED: bisacodyL 10 MG SUPP PR PRN (12:34)
[2023-10-11] MEDS ORDERED: ALUMINUM/MAGNESIUM SUSP 30 ML UDC PO PRN (12:34)
[2023-10-11] MEDS ORDERED: ONDANSETRON INJ 2 MG/ML 2 ML VIAL IV PRN (12:34)
[2023-10-11] MEDS ORDERED: diphenhydrAMINE 50 MG/ML VIAL IV PRN (12:34)
[2023-10-11] MEDS ORDERED: HYDROmorphone INJ 0.5 MG/0.5 ML SYR IV PRN (12:34)
[2023-10-11] MEDS ORDERED: VANCOMYCIN CONSULT ACTIVE PRN (12:34)
[2023-10-11] MEDS ORDERED: NALOXONE HCL 0.4 MG/1 ML VIAL/CARP IV PRN (12:34)
[2023-10-11] MEDS ORDERED: ALBUTEROL HFA 8 GM INHALER INH PRN (12:34)
[2023-10-11] MEDS ORDERED: MAGNESIUM HYDROXIDE SUSP 30 ML UDC PO PRN (12:34)
--- NOTE | 2023-10-11 14:04 | Orthopedic Progress Note ---
Date of Service October 11, 2023 Assessment & Plan Admission and Anticipated Discharge Date Admission Date: October 11, 2023 Orthopedic Progress Note Postop check status post right total knee replacement. Patient is resting comfortably in bed. She denies chest pain shortness of breath fever chills nausea vomiting or headache. Vital signs are stable she is afebrile. Neurovascular check femoral sciatic nerve is within normal limits. Can do straight leg raise ankle pumps inversion eversion circumduction abduction etc. of the foot. Can do straight leg raise well. Wound dressing clean dry and intact. Eating and drinking. Assessment doing well will discontinue IV fluid mobilize. Continue range of motion exercises pointed out the sheet to her. Follow-up in a.m. for discharge.
[2023-10-11] MEDS: SODIUM CHLORIDE 0.9% 1,000 ML IV SCH (14:29)
[2023-10-11] MEDS: KETOROLAC TROMETHAMINE 15 MG/ML VIAL IV SCH (14:29)
[2023-10-11] MEDS: ACETAMINOPHEN 500 MG TAB PO SCH (15:00)
[2023-10-11] MEDS: VANCOMYCIN HCL 750 MG in SODIUM CHLORIDE 0.9% 250 ML IV ONE (15:12)
[2023-10-11] MEDS: ASCORBIC ACID 500 MG TAB PO SCH (17:58)
[2023-10-11] MEDS: FERROUS GLUCONATE 324 MG TAB PO SCH (17:58)
[2023-10-11] MEDS: SIMVASTATIN 20 MG TAB PO SCH (21:09)
[2023-10-11] MEDS: SENNA 8.6 MG TAB PO SCH (21:09)
[2023-10-11] MEDS: DOCUSATE SODIUM 100 MG CAP PO SCH (21:09)
[2023-10-11 22:58] VITALS: RESP 16
[2023-10-12 03:03] VITALS: TEMP 98.4
--- NOTE | 2023-10-12 06:05 | Orthopedic Progress Note ---
Date of Service October 12, 2023 Assessment & Plan Admission and Anticipated Discharge Date Admission Date: October 11, 2023 Orthopedic Progress Note Postop day #1 status post right total knee replacement. Patient denies any chest pain shortness of breath fever chills nausea vomiting or headache. She is awake and alert. Vital signs are stable she is afebrile. Neurovascular check femoral sciatic nerve is normal. Calves nontender. Wound dressing clean dry and intact. A.m. labs are pending. Assessment doing well status post right total knee replacement discharged home today after PT OT. Initiate onset of anticoagulation today. Follow-up in 2 weeks.
[2023-10-12 06:28] LABS: Hemoglobin 13.3 g/dl (12.0-16.0); Mean Corpuscular Hgb Conc 32.4 g/dL (32.0-36.0); Mean Corpuscular Volume 92.3 fL (80.0-100.0); Mean Platelet Volume 10.9 fL (9.4-12.4); Platelet Count 202 K/uL (130-400); RDW Coefficient of Variation 12.8 % (11.5-14.5); RDW Standard Deviation 43.3 fL (36.4-46.3); Red Blood Count 4.44 M/uL (4.20-5.40)
[2023-10-12 06:42] LABS: BUN Creatinine Ratio 16.4 (10-20); Calcium 8.4 mg/dl (8.6-10.3); Creatinine Clr Calc Pharmacy 67.4 ml/min; Est GFR (African American) 105.4 ml/min; Potassium 4.1 mmol/L (3.5-5.1)
[2023-10-12 07:12] VITALS: BP 124/68; PULSE 65; O2SAT 95
[2023-10-12] MEDS: APIXABAN 2.5 MG TAB PO SCH (08:04)
[2023-10-12] MEDS: MULTIVITAMIN TAB PO SCH (08:05)
[2023-10-12] MEDS: dexAMETHasone 10 MG in SYRINGE 0 ML IV SCH (08:16)
--- NOTE | 2023-10-12 09:17 | Orthopedic Progress Note ---
Date of Service October 12, 2023 Assessment & Plan (1) Status post right knee replacement: Plan: The patient was educated regarding today's findings. The postsurgical dressings were changed by me. Ozzie stocking was applied. Written discharge instructions were provided. Keep the knee immobilizer on when out of bed today and tomorrow. It can be discontinued entirely on Monday morning. Her postsurgical dressings can be changed on Monday if needed for soiling. They may also be left in place if they are dry. Ice and elevate the knee frequently to reduce pain and swelling. Use the walker for ambulation and standing. Follow-up visit with me in the office on October 25 for staple removal. Call the office with any other concerns. Admission and Anticipated Discharge Date Admission Date: October 11, 2023 Subjective This 68-year-old female seen today in her room. She is 1 day status post right total knee arthroplasty. She states she is doing fine. She has no chest pain, shortness of breath, nausea, vomiting, or abdominal pain. She was out of bed last evening and ate dinner in her bedside chair. She has been out of bed this morning to go to the bathroom. She feels ready for discharge. Her pain has been controlled. No other complaints. Review of Systems Review of Systems: Unchanged from yesterday. Physical Exam Physical Exam: General: Well-developed, well-nourished, middle-aged female, in no acute distress. Sitting in bed. Alert and oriented. Skin: Warm and dry with good turgor. No rashes. No ecchymosis. Postsurgical dressing is in place on the right knee. Upon removal, there is scant dried blood on her inner dressings. No active bleeding. Jacinto are intact. Wound edges are well-approximated. No erythema or warmth. No significant intra- articular effusion. Musculoskeletal: The patient has intact motor function of her hip, knee, ankle, and toes. She is able to set her quad and perform a straight leg raise. She has full terminal extension. Flexion to greater than 65 degrees. She is able to ambulate in the room with her walker with a minimal limp. Neurologic: Gross sensation is intact across the right leg by soft touch. Peripheral pulses are 2+. Results & Data Vital Signs (Past 12 Hours) Vital Signs Temp Pulse Resp BP Pulse Ox O2 Del Method 10/12/23 07:43 Room Air 10/12/23 07:12 36.9 C 65 16 124/68 95 Room Air 10/12/23 03:00 36.9 C 67 16 158/68 H 96 Room Air 10/11/23 22:57 36.6 C 58 L 16 131/71 98 Room Air Laboratory Results CBC obtained this morning shows a white count of 9.4. H&H of 13.3 and 41.0. Platelets 202,000. Electrolytes are normal. BUN of 11 with creatinine 0.67. Glucose this morning 115.
[2023-10-12] MEDS: oxyCODONE HCL IR 5 MG TAB (IMMEDIATE RELEASE) PO PRN (10:33)
== END 2023-10-12 10:42 | disposition home health service (06) ==
LOC: ASU 06:14 → PACUINP 06:14 → 3E 13:51